=== PATIENT | female | born 2000 | race Caucasian/White ===

== ENCOUNTER 2020-03-10 15:15 | Outpatient (CLI) | payer OTHER, SELFPAY ==
--- NOTE | ~2020-03-10 | US_ITS ---
EXAMINATION: US OB <= 14 weeks fetus DATE: 03/10/2020 15:46 INDICATION: Gestational dating TECHNIQUE: Real-time transabdominal and transvaginal obstetric ultrasound. FINDINGS: No prior studies for comparison. The uterus measures 8.8 x 5 x 6 cm. There is a small subchorionic hemorrhage measuring 2.4 x 1.7 x 0. 3 cm. There is an intrauterine gestational sac, with pole identified. The crown rump length me asures 1.58 cm, which correlates with a estimated gestational age of 8 weeks 0 days. heart to jayde are identified measuring 154 BPM. Ovaries are not visualized. IMPRESSION: 1. SL IUP with an EGA of 8 weeks, 0 days (EDC by current ultrasound of 10/20/2020). 2: Small subchorionic hemorrhage measuring 2.4 x 1.7 x 0.3 cm. Reviewed, dictated and finalized at location A. E ELIMINATION IMPRESSION: 1. SL IUP with an EGA of 8 weeks, 0 days (EDC by current ultrasound of ). 2: Small subchorionic hemorrhage measuring 2.4 x 1.7 x 0.3 cm.
== END 2020-03-10 15:16 | disposition home or self-care (01) ==
LOC: ANHIMG 15:23
PROVIDERS: PCP Family Medicine; Visit Provider Family Medicine
DX: Z34.91 Encounter for supervision of normal pregnancy, unspecified, first trimester (principal); Z3A.08 8 weeks gestation of pregnancy
CPT/HCPCS: 76801